=== PATIENT | female | born 1945 | race Caucasian/White ===

== ENCOUNTER → 2023-11-13 11:21 | Outpatient (REF) | payer OTHER, SELFPAY | LOC: RAD 11:21 | PROVIDERS: ATTENDING PHYSICIAN Family Medicine | DX: R05.8 Other specified cough (principal); M54.50 Low back pain, unspecified; Z87.81 Personal history of (healed) traumatic fracture | CPT/HCPCS: 71046; 72110 ==

== ENCOUNTER → 2023-12-18 09:37 | Outpatient (REF) | payer OTHER, SELFPAY | LOC: WDC 09:37 | PROVIDERS: ATTENDING PHYSICIAN Family Medicine Geriatric Medicine; FAMILY PHYSICIAN Family Medicine | DX: R92.2 Inconclusive mammogram (principal); R92.30 Dense breasts, unspecified | CPT/HCPCS: 76641 ==

== ENCOUNTER → 2024-01-05 08:55 | Outpatient (REF) | payer OTHER, SELFPAY | LOC: RAD 08:55 | PROVIDERS: ATTENDING PHYSICIAN Family Medicine | DX: R07.81 Pleurodynia (principal) | CPT/HCPCS: 71101 ==

== ENCOUNTER → 2024-01-30 09:01 | Outpatient (REF) | payer OTHER, SELFPAY | LOC: RAD 09:01 | PROVIDERS: ATTENDING PHYSICIAN Family Medicine | DX: R35.1 Nocturia (principal) | CPT/HCPCS: 76770 ==

== ENCOUNTER → 2024-02-13 13:34 | Outpatient (REF) | payer OTHER, SELFPAY | LOC: PAVMRI 13:34 | PROVIDERS: ATTENDING PHYSICIAN Internal Medicine Rheumatology; FAMILY PHYSICIAN Family Medicine | DX: S32.020S Wedge compression fracture of second lumbar vertebra, sequela (principal); S22.080S Wedge compression fracture of T11-T12 vertebra, sequela | CPT/HCPCS: 72148 ==

== ENCOUNTER → 2024-07-16 09:15 | Outpatient (REF) | payer OTHER, SELFPAY | LOC: RAD 09:15 | PROVIDERS: ATTENDING PHYSICIAN Family Medicine; REFERRING PHYSICIAN Internal Medicine Rheumatology | DX: M81.0 Age-related osteoporosis without current pathological fracture (principal) | CPT/HCPCS: 77080 ==

== ENCOUNTER → 2024-10-29 14:02 | Outpatient (REF) | payer OTHER, SELFPAY | LOC: WDC 14:02 | PROVIDERS: ATTENDING PHYSICIAN Family Medicine | DX: Z12.31 Encounter for screening mammogram for malignant neoplasm of breast (principal); Z85.3 Personal history of malignant neoplasm of breast | CPT/HCPCS: 77063; 77067 ==

== ENCOUNTER → 2024-11-25 10:36 | Outpatient (REF) | payer OTHER, SELFPAY | LOC: RAD 10:36 | PROVIDERS: ATTENDING PHYSICIAN Family Medicine Geriatric Medicine; FAMILY PHYSICIAN Family Medicine | DX: M25.511 Pain in right shoulder (principal) | CPT/HCPCS: 73030 ==

== ENCOUNTER → 2024-11-29 08:28 | Outpatient (REF) | payer OTHER, SELFPAY | LOC: RAD 08:28 | PROVIDERS: ATTENDING PHYSICIAN Family Medicine | DX: R06.02 Shortness of breath (principal); R05.3 Chronic cough | CPT/HCPCS: 71046 ==

== ENCOUNTER → 2024-12-17 09:43 | Outpatient (REF) | payer OTHER, SELFPAY | LOC: WDC 09:43 | PROVIDERS: ATTENDING PHYSICIAN Family Medicine | DX: R92.333 Mammographic heterogeneous density, bilateral breasts (principal) | CPT/HCPCS: 76641 ==

== ENCOUNTER 2025-01-25 07:58 | Emergency (ER) | payer OTHER, SELFPAY ==
[2025-01-25 08:06] VITALS: BP 143/83
--- NOTE | 2025-01-25 09:50 | ED.GENMED ---
History of Present Illness
General
Chief Complaint: Cough
Source: patient
Exam Limitations: none
Time Seen by Provider: 01/25/25 08:52
History of Present Illness
History of Present Illness:
79-year-old female who presents with 2 to 3 weeks of runny nose, cough and congestion. Had an outpatient x-ray that was reportedly normal. Also saw ENT. Was started on cefdinir and finished the course. She states she has not felt any better.
She has felt weak and still maintains a cough with yellow sputum. No hemoptysis. 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 Denies fevers.
Past History
Past History
ED Past Medical History: Cancer (Breast), HTN, Hypercholesterolemia and Other (L1 compression fracture)
ED Past Surgical History: Cholecystectomy and Other
Patient has exhibited threatening behavior?: No
PSI?: No
Social History
Tobacco: Non-smoker
Alcohol: None
Personal:
Living: with family
Employment: Retired
Family History
Family History: Other (Noncontributory)
Phy Exam
Physical Exam
Physical Exam:
CONSTITUTIONAL Patient alert and oriented to person, place and time. Well-appearing. Vital signs reviewed.
HEAD atraumatic, normocephalic.
EYES eyelids normal to inspection, Extraocular muscles intact, Conjunctiva normal, Sclera normal.
NECK normal range of motion, Trachea midline, no jugular venous distention.
RESPIRATORY CHEST No respiratory distress noted, Chest expansion equal, Bilateral breath sounds clear.
CARDIOVASCULAR regular rate and rhythm, Heart sounds normal.
ABDOMEN abdomen nontender, Bowel sounds normal. No distention.
BACK normal inspection, no obvious deformities
UPPER EXTREMITY range of motion normal, Motor strength normal, no cyanosis, no edema.
LOWER EXTREMITY range of motion normal, Motor strength normal, no cyanosis, no edema.
NEURO Speech normal, No focal motor deficits, Isra coma scale 15, Memory normal, Cranial Nerves intact to screening exam.
SKIN skin warm, dry, and normal in color.
Sepsis
Sepsis Screening
Sepsis Assessment: Sepsis Ruled Out
Sepsis Screen
Sepsis Screen: Sepsis Ruled Out
Date: 01/25/25
Time: 14:47
Course
Orders/Labs/Results
Orders:
Orders
01/25/25 09:40
CR Chest - 2 Views Urgent
Comment:
Reason For Exam: cough
01/25/25 09:53
Ipratropium/Albuterol Sulfate [Duoneb] 3 ml INH R NOW STA
01/25/25 10:19
Complete Blood Count/With Diff Urgent
Comprehensive Metabolic Panel Urgent
Abnormal Lab Results
01/25/25
10:19
RBC 3.85 L 10^6/uL
(4.20-5.40)
Hct 34.7 L %
(37.0-47.0)
MCH 31.9 H pg
(27.0-31.0)
Absolute Lymphs (auto) 0.5 L 10^3/uL
(1.2-3.4)
Absolute Monos (auto) 0.8 H 10^3/uL
(0.1-0.6)
Neutrophils % 81.7 H %
(42.2-75.2)
Lymphocytes % 6.5 L %
(20.5-51.1)
Monocytes % 10.3 H %
(1.7-9.3)
Sodium 130 L mmol/L
(135-145)
Chloride 95 L mmol/L
(98-107)
BUN 6 L mg/dl
(7-17)
Creatinine 0.5 L mg/dL
(0.6-1.0)
Glucose 109 H mg/dl
(70-99)
Total Bilirubin 1.5 H mg/dl
(0.2-1.3)
Total Protein 6.1 L g/dl
(6.3-8.2)
01/25/25 10:19
01/25/25 10:19
Vital Signs
Initial and Last Documented VS:
Initial Vital Signs
Temp Pulse Resp BP Pulse Ox
99.1 F 92 18 143/83 96
01/25/25 08:06 01/25/25 08:06 01/25/25 08:06 01/25/25 08:06 01/25/25 08:06
Last Documented Vital Signs
Temp Pulse Resp BP Pulse Ox
99.1 F 93 22 143/83 97
01/25/25 08:06 01/25/25 11:00 01/25/25 11:00 01/25/25 08:06 01/25/25 10:45
MDM/Problems Addressed
Differential Diagnosis Includes:
Bronchitis, pneumonia, pulmonary abscess
MDM/Problems Addressed:
Bronchitis, upper respiratory infection
*Radiology
Radiology exam reviewed: preliminary read by ED provider (No acute process)
*Pulse Oximetry
Patient hypoxic: no
*Laborer Operator Interpretation
Rate: normal
Interpretation: normal
Rhythm: sinus
*Critical Care Note
Total Time (30-74mins, 75-104mins- exclusive of procedures): Not Applicable
Data Reviewed
Prescriptions/Medications Considered But Not Given:
Considered antibiotics but no evidence of pneumonia, no fever and labs unremarkable. Suspect URI
Patient Management
Escalation/DeEscalation of care consider admission/obs:
Patient appears well. Lungs clear. No pneumonia by chest x-ray. Recently finished a course of antibiotics. Will trial course of steroids for the bronchitis and recommend outpatient follow-up. Patient states she has a CT of her sinuses and chest
scheduled as an outpatient which I think is reasonable and do not suspect any reason to have it done in the emergency department.
ED Attending Note
-
Portions of this chart may have been created with voice recognition software.� Occasional wrong word or��sound alike� substitutions may have occurred due to the inherent limitations of voice recognition software.
Discharge Plan
Departure
Patient Disposition: Home (Routine Discharge)
Date of Disposition: 01/25/25
Time of Disposition: 10:59
Patient with high blood pressure during this ER visit?: Yes
Discharge Problem:
Acute bronchitis
Instructions: Acute Bronchitis, Adult (DC), BLOOD PRESSURE
Prescriptions:
New
prednisone 10 mg Tablet
See Rx Instructions .ROUTE .COMPLEX Qty: 30 0RF
Rx Instructions:
Take By Mouth:
40 mg daily x3 days, 30 mg daily x3 days,
20 mg daily x3 days, 10 mg daily x3 days.
No Action
losartan 50 MG tablet
50 mg PO DAILY
aspirin 81 MG tablet,chewable
81 mg PO DAILY
esomeprazole magnesium [Nexium] 40 MG capsule,delayed release(DR/EC)
40 mg PO DAILY
atorvastatin 40 MG tablet
40 mg PO QPM
cyanocobalamin (vitamin B-12) [Vitamin B-12] 500 MCG tablet
500 mcg PO DAILY
hydromorphone 2 MG tablet
2 mg PO Q4HPRN PRN (Reason: moderate to severe pain) Qty: 30 0RF
ondansetron 4 MG tablet,disintegrating
4 mg PO Q8HPRN PRN (Reason: nausea/vomiting) Qty: 15 0RF
hydrocodone-acetaminophen 5-325 mg tablet
1 tab PO Q8H PRN (Reason: pain) Qty: 12 0RF
Referrals:
Barbi Dave MD [Family Provider] -
Activity Restrictions/Additional Instructions:
Return immediately for shortness of breath, coughing up blood, vomiting, worsening symptoms or any other concerns. Please see your doctor in the next 3 to 5 days for follow-up and reevaluation.
Interventions
Interventions:
*Risk Screen - Suicide Last Done: 01/25/25 08:07
*General Assessment Last Done: 01/25/25 08:07
*Neglect/Abuse Screening Last Done: 01/25/25 08:07
*ED- Fall Risk Assessment Last Done: 01/25/25 10:02
*ED COVID-19 Vaccine History Last Done: 01/25/25 10:02
*Nursing Disposition Last Done: 01/25/25 11:17
ED- Pulmonary Assessment Last Done: 01/25/25 10:02
Discharge Date and Time
Discharge Date/Time: 01/25/25 11:20
Print Language: PORTUGUESE
[2025-01-25] MEDS: DUONEB 3 ML INH (10:20)
[2025-01-25 10:30] LABS: % Basophils 0.6 % (0-2); % Eosinophils 0.6 % (0-6); % Immature Granulocytes 0.3 % (0-0.5); % Lymphocytes 6.5 % (20.5-51.1); % Monocytes 10.3 % (1.7-9.3); % Neutrophils 81.7 % (42.2-75.2); Absolute Basophils 0.1 10^3/uL (0-0.2); Absolute Eosinophils 0.1 10^3/uL (0-0.7); Absolute Lymphocytes 0.5 10^3/uL (1.2-3.4); Absolute Monocytes 0.8 10^3/uL (0.1-0.6); Absolute Neutrophils 6.5 10^3/uL (1.4-6.5); Hematocrit 34.7 % (37.0-47.0); Hemoglobin 12.3 g/dL (12.0-16.0); Mean Corp Hgb Conc. 35.4 g/dL (33.0-37.0); Mean Corpuscular Hgb 31.9 pg (27.0-31.0); Mean Corpuscular Volume 90.1 fL (81.0-99.0); Nucleated Red Blood Cells % 0 %; Platelet Count 212 10^3/uL (130-400); Red Blood Cell Count 3.85 10^6/uL (4.20-5.40); Red Cell Dist. Width 12.7 % (11.5-14.5)
[2025-01-25 10:45] LABS: ALT (SGPT) 18 U/L (0-35); AST (SGOT) 19 U/L (14-36); Alkaline Phosphatase 47 U/L (38-126); Blood Urea Nitrogen 6 mg/dl (7-17); Calcium 9.1 mg/dl (8.4-10.2); Carbon Dioxide 25 mmol/L (22-30); Chloride 95 mmol/L (98-107); Glucose 109 mg/dl (70-99); Sodium 130 mmol/L (135-145); Total Bilirubin 1.5 mg/dl (0.2-1.3); Total Protein 6.1 g/dl (6.3-8.2); eGFR > 60.00
== END 2025-01-25 11:20 | disposition home or self-care (01) ==
LOC: EMR 07:58
PROVIDERS: EMERGENCY PHYSICIAN Emergency Medicine; FAMILY PHYSICIAN Family Medicine
DX: J20.9 Acute bronchitis, unspecified (principal); E78.00 Pure hypercholesterolemia, unspecified; I10 Essential (primary) hypertension; Z90.49 Acquired absence of other specified parts of digestive tract; J06.9 Acute upper respiratory infection, unspecified
CPT/HCPCS: 94640; 99284; 71046; 80053; 85025

== ENCOUNTER → 2025-02-06 11:26 | Outpatient (REF) | payer OTHER, SELFPAY | LOC: HWRAD 11:26 | PROVIDERS: ATTENDING PHYSICIAN Family Medicine | DX: K40.90 Unilateral inguinal hernia, without obstruction or gangrene, not specified as recurrent (principal); N20.0 Calculus of kidney | CPT/HCPCS: 74176 ==

== ENCOUNTER → 2025-02-08 09:09 | Outpatient (REF) | payer OTHER, SELFPAY | LOC: RAD 09:09 | PROVIDERS: ATTENDING PHYSICIAN Physician Assistant; FAMILY PHYSICIAN Family Medicine | DX: R05.3 Chronic cough (principal); J31.2 Chronic pharyngitis | CPT/HCPCS: 70486; 71250 ==

== ENCOUNTER 2025-04-27 14:07 | Observation (INO) | payer OTHER, SELFPAY ==
[2025-04-27] VITALS (12 sets, daily range): BP systolic 150–201; BP diastolic 63–83; BMI 23.3; BMI 23.8
[2025-04-27 08:46] LABS: Hematocrit 37.8 % (37.0-47.0); Hemoglobin 13.4 g/dL (12.0-16.0); Mean Corp Hgb Conc. 35.4 g/dL (33.0-37.0); Mean Corpuscular Volume 89.8 fL (81.0-99.0); Nucleated Red Blood Cells % 0 %; Platelet Count 269 10^3/uL (130-400); Red Cell Dist. Width 12.7 % (11.5-14.5)
--- NOTE | 2025-04-27 08:56 | EDRN ---
Dr. Schultz in room w/ pt at this time.
--- NOTE | 2025-04-27 08:59 | ED.GENMED ---
History of Present Illness
General
Chief Complaint: Abdominal Pain
Source: patient
Exam Limitations: none
Time Seen by Provider: 04/27/25 08:49
History of Present Illness
History of Present Illness:
79-year-old female ongoing right lower quadrant pain. She is convinced this is a hernia. She states this been going on for 2 weeks constant but waxes and wanes and at times worse. Occasionally nausea with it. No vomiting no change in bowel
movements no fever chills no flank or back pain. Patient states she did have a CAT scan for this recently. However on reviewing the records the CAT scan was done 2-1/2 months ago. She then states that she may have had some of this pain prior to 2
weeks ago. She does not see a lump when she stands but she states she feels like there is a lump there
Past History
Past History
ED Past Medical History: Cancer (Breast), HTN, Hypercholesterolemia and Other (L1 compression fracture)
ED Past Surgical History: Cholecystectomy and Other
Patient has exhibited threatening behavior?: No
PSI?: No
Social History
Tobacco: Non-smoker
Alcohol: None
Personal:
Living: with family
Employment: Retired
Family History
Family History: Other (Noncontributory)
Review of Systems
Review of Systems
Constitutional: Denies fever or chills
Respiratory: Reports no symptoms
Cardiac: Reports no symptoms
Phy Exam
Physical Exam
Physical Exam:
GENERAL: Alert and oriented in no apparent distress
EYE: Orbits normal.
NECK: Supple
CARDIAC: Regular rate and rhythm without any obvious murmurs.
LUNGS: Clear breath sounds,normal
ABDOMEN: Soft, no distention. Bowel sounds present. Reproducible right lower quadrant and right pelvic tenderness. No obvious hernia palpated. No adenopathy.
NEUROLOGICAL: Alert and oriented , grossly non-focal
SKIN: Warm and dry, no rash or lesion, no discoloration, skin intact.
MUSCULOSKELETAL: No edema,no deformity.Good color
PSYCH: Normal and appropriate interaction.
Course
Orders/Labs/Results
Orders:
Orders
04/27/25 Breakfast
Sodium, 2 Gram
Fluid Restriction: 1500 mL/day (50 oz)
04/27/25 08:30
IV Insert/Care/Rem.- Treatment PRN
04/27/25 08:37
Complete Blood Count/With Diff Urgent
04/27/25 08:58
CT Abd/pel W Iv And Oral Contr Urgent
Comment:
Reason For Exam: Ongoing and progressive right lower quadrant pain
IV Insert/Care/Rem.- Treatment PRN
0.9% Sodium Chloride 500 ml [Nss] 500 ml IV BOLUS
Acetaminophen [Tylenol] 650 mg PO NOW STA
Iohexol [Omnipaque] See Protocol PO NOW STA
04/27/25 09:18
Comprehensive Metabolic Panel Urgent
Lipase Urgent
Serum Osmolality Urgent
Comment: ADD ON
04/27/25 13:08
Add On- LAB Urgent
Tests Added?: serum osm
04/27/25 13:10
Bladder Scan As Directed
Follow Bladder Retention/Intermittent Cath Algorithm?: Yes
PRN if no void in __ hours: 6
Frequency: Per Retention Algorithm
If Bladder Scan Result >: 400
then:: Straight cath
Comment: Please document post-void residual
Straight Cath As Directed
Frequency: Per Retention Algorithm
Additional Instructions: straight cath as needed per acute urinary retention algorithm for 24 hrs
Additional Instructions: for bladder scan greater than 400 mL
04/27/25 13:11
Admit/Transfer Patient As Directed
Co-Sign Provider:
Level of Care: Observation services
Assign to:: Medical/Surgical
Physician / Group: [place]
Diagnosis: Abdominal Pain
Code Status As Directed
Resuscitation Status: Full Code
PRN Pain Medication Management As Directed
May give lesser potent ordered pain med per pt: Yes
preference::
Protocol:: Medication orders for pain may be administered in a
manner that supports deferring to patient preference
when the pt is:
- Requesting an ordered lesser potent pain medication.
Least to most potent pain medications are defined
as: acetaminophen < NSAID < tramadol < opioids
(morphine, oxycodone, hydromorphone).
- Requesting a lesser dose of the same medication IF
ORDERED.
- Requesting a less intrusive route of administration
if both routes are prescribed by the provider (PO <
IV).
04/27/25 14:08
Sodium Routine
Urinalysis Reflex To Culture Urgent
Date Specimen was Collected: 04/27/25
Time Specimen was Collected: 13:40
Urine Osmolality Random [Osmolality, Random Urine] Urgent
Date Specimen was Collected: 04/27/25
Time Specimen was Collected: 13:41
Urine Sodium Urgent
Date Specimen was Collected: 04/27/25
Time Specimen was Collected: 13:41
04/27/25 15:41
HydrALAZINE [Apresoline] 5 mg IV Q6HPRN PRN
04/27/25 15:41
Activity As Directed
Activity Level: Out of Bed-Early Mobility
With Assistance
I&O [Intake/ Output] As Directed
Frequency: q12h
Vital Signs As Directed
Frequency: Per unit guidelines
Weight As Directed
Frequency: Daily
DX Deep Vein Thrombosis Video Routine
04/27/25 16:00
Acetaminophen [Tylenol] 650 mg PO Q4HPRN PRN
04/27/25 18:00
Enoxaparin Sodium [Lovenox] 40 mg SC QPM
04/28/25 06:00
Basic Metabolic Panel IN AM
Complete Blood Count/No Diff IN AM
TSH Reflex To Free T4 IN AM
04/28/25 08:00
Polyethylene Glycol Powder [Miralax] 17 grams PO DAILY
Abnormal Lab Results
04/27/25 04/27/25
08:37 09:18
MCH 31.8 H pg
(27.0-31.0)
Absolute Lymphs (auto) 0.6 L 10^3/uL
(1.2-3.4)
Neutrophils % 83.1 H %
(42.2-75.2)
Lymphocytes % 8.5 L %
(20.5-51.1)
Sodium 126 L mmol/L
(135-145)
Chloride 96 L mmol/L
(98-107)
BUN 5 L mg/dl
(7-17)
Creatinine 0.4 L mg/dL
(0.6-1.0)
Glucose 114 H mg/dl
(70-99)
Serum Osmolality 264 L mOsm/kg
(275-300)
04/27/25 08:37
04/27/25 09:18
Vital Signs
Initial and Last Documented VS:
Initial Vital Signs
Temp Pulse Resp BP Pulse Ox
97.6 F 79 16 165/79 99
04/27/25 07:56 04/27/25 07:56 04/27/25 07:56 04/27/25 07:56 04/27/25 07:56
Last Documented Vital Signs
Temp Pulse Resp BP Pulse Ox
97.8 F 83 18 169/80 98
04/27/25 16:05 04/27/25 16:05 04/27/25 16:05 04/27/25 16:05 04/27/25 16:05
MDM/Problems Addressed
Differential Diagnosis Includes:
Ongoing right lower quadrant/pelvic pain. Differential would include hernia appendicitis right-sided diverticulitis nonspecific pain. Workup in progress
*Radiology
Radiology exam reviewed: radiology read reviewed (No acute findings. No obvious hernia or explanation for her pain)
*Pulse Oximetry
SaO2: 99
Oxygen Mode of Delivery: Room air
Patient hypoxic: no
*Critical Care Note
Total Time (30-74mins, 75-104mins- exclusive of procedures): Not Applicable
Update Note
Update Note:
Patient with moderate hyponatremia. No obvious explanation. No significant free water intake. No diuretic. Discussed options with patient of fluid restrict and repeat outpatient labs in 2 days versus admission. She would prefer to stay and be
admitted.
ED Attending Note
-
Portions of this chart may have been created with voice recognition software.� Occasional wrong word or��sound alike� substitutions may have occurred due to the inherent limitations of voice recognition software.
Discharge Plan
Departure
Patient Disposition: Admit
Date of Disposition: 04/27/25
Time of Disposition: 12:44
Presentation/result/management discussed w/ accepting MD/DO: Hospitalist
Discharge Problem:
Intractable right lower quadrant pain, Hyponatremia
Interventions
Interventions:
*Risk Screen - Suicide Last Done: 04/27/25 08:27
*General Assessment Last Done: 04/27/25 08:27
*Neglect/Abuse Screening Last Done: 04/27/25 08:27
*ED- Fall Risk Assessment Last Done: 04/27/25 08:27
*ED COVID-19 Vaccine History Last Done: 04/27/25 08:27
*Nursing Disposition Last Done: 04/27/25 15:27
ES-Crfkfm-Hcagiqivsl Assessment Last Done: 04/27/25 08:28
Discharge Date and Time
Discharge Date/Time: 04/27/25 15:30
[2025-04-27] MEDS: TYLENOL 650 MG PO (09:10)
[2025-04-27] MEDS: OMNIPAQUE 50 ML PO (09:10)
[2025-04-27] MEDS: NSS 500 IV (09:16)
--- NOTE | 2025-04-27 09:21 | EDRN ---
SST blood tube for CMP and lipase redrawn and sent at this time.
[2025-04-27 09:35] LABS: ALT (SGPT) 21 U/L (0-35); AST (SGOT) 24 U/L (14-36); Albumin 4.5 g/dl (3.5-5.0); Alkaline Phosphatase 44 U/L (38-126); Blood Urea Nitrogen 5 mg/dl (7-17); Calcium 9.1 mg/dl (8.4-10.2); Carbon Dioxide 26 mmol/L (22-30); Chloride 96 mmol/L (98-107); Estimated Creatinine Clearance 63 ml/min; Glucose 114 mg/dl (70-99); Lipase 53 U/L (23-300); Potassium 4.5 mmol/L (3.5-5.1); Sodium 126 mmol/L (135-145); Total Protein 6.7 g/dl (6.3-8.2); eGFR > 60.00
--- NOTE | 2025-04-27 12:24 | EDRN ---
Up to BR on return from CT at 11:27 and attempted urine spec, did not get enough urine.
--- NOTE | 2025-04-27 12:45 | HPS.HSE ---
Addendum entered and electronically signed by Belgica Camara PA-C 04/27/25 15:08:
Medication reconciliation revealed patient was recently started on Lexapro earlier this week
-Given worsening hyponatremia will stop Lexapro as a possible contributing factor
Original Note:
Family Physician
-
Family Physician: Barbi Dave
Chief Complaint
-
Abdominal Pain
History of Present Illness
Patient is a 79 y/o female past medical history of CAD, HTN, Compression Fracture, GERD and Breast Cancer who presents with abdominal pain. Patient reports lower abdominal pain has been waking her up around 2am almost very night for the past few
weeks. Today the pain was more severe prompting her to come to the emergency department for evaluation. Patient states sometimes she gets a burning sensation down the anterior right leg. Patient reports associated constipation. She denies any
nausea or vomiting. Patient reports urinary frequency particularly at night and she states she was recently started on a medication for overactive bladder. Patient reports she has been under an increased amount of stress recently while her
is in a jail. She notes she eat breakfast, but never eats lunch and only sometimes eats dinner stating she usually drinks an Ensure.
Medical History
Past Medical History
Past Medical History: Reports Other
Additional Past Medical History:
Coronary Artery Disease s/p Stent
Essential Hypertension
Hyperlipidemia
Lumbar Compression Fracture
Depression
GERD
Breast Cancer
Past Surgical History: Reports Other
Additional Past Surgical History:
Cholecystectomy
Right Breast Lumpectomy
Tiana Fundoplication
Social History
Tobacco: Non-smoker
Alcohol: Daily (One glass of wine nightly)
Family History
Family History: Not pertinent
Allergies / Home Medications
Allergies reflects when Allergies were last updated in [employer].
Home Medications with original date entered in [facility]
Allergy/Medication List:
Allergies
Allergy/AdvReac Type Severity Reaction Status Date / Time
pecan nut Allergy RAPID Verified 01/25/25 08:06
HEART RATE
procaine Allergy Unknown Verified 01/25/25 08:06
epinephrine AdvReac Rapid Verified 01/25/25 08:06
Heart
rate,
sweats
Home Medications
atorvastatin 40 mg tablet 40 mg PO QPM 01/06/16
cyanocobalamin (vitamin B-12) 500 mcg tablet (Vitamin B-12) 500 mcg PO DAILY 01/06/16
aspirin 81 mg tablet 81 mg PO DAILY 04/27/25
calcium ER 600 mg (as carb,cit)-D3 12.5 mcg (500 unit) tablet, ext.rel (Citracal-D3 Slow Release) 1 tab PO DAILY 04/27/25
cholecalciferol (vitamin D3) 25 mcg (1,000 unit) tablet 25 mcg PO DAILY 04/27/25
escitalopram oxalate 5 mg tablet 5 mg PO DAILY 04/27/25
famotidine 20 mg tablet 20 mg PO QPM 04/27/25
omeprazole 20 mg capsule,delayed release 20 mg PO QPM 04/27/25
solifenacin 10 mg tablet 10 mg PO QPM 04/27/25
vit C 250 mg-vit E 90 mg-zinc 40 mg-copper 1 ng-trcnwi-gbuvsu capsule (PreserVision AREDS-2) 1 tab PO BID 04/27/25
Review of Systems
-
A 12 point ROS was completed and negative except as noted: Yes
Constitutional: Denies Fever
Respiratory: Denies Cough or Trouble Breathing
Cardiac: Denies Chest Pain or Palpitations
Abdomen/GI: Reports See HPI
: Reports See HPI
Physical Exam
Vital Signs
Vital Signs
Temp Pulse Resp BP Pulse Ox
97.6 F 79 16 169/74 99
04/27/25 07:56 04/27/25 12:00 04/27/25 12:00 04/27/25 12:00 04/27/25 12:00
Physical Exam
General: Comfortable and Conversant
HEENT: Anicteric and Moist mucous membranes
Respiratory: Clear and Non Labored Respirations
Cardiac: S1/S2 and Regular Rhythm
GI: Soft and Tender (Tenderness to palpitation in lower quadrants)
Rectal: Deferred by Provider
Musculoskeletal: No Clubbing, No Cyanosis and No Edema
Skin: Warm and Dry
Neuro: Awake, Alert, Oriented and Nonfocal/grossly intact
Psych: Calm
Laboratory Results
-
04/27/25 08:37
04/27/25 09:18
Laboratory Results
Total Bilirubin 1.0 mg/dl (0.2-1.3) 04/27/25 09:18
AST 24 U/L (14-36) 04/27/25 09:18
ALT 21 U/L (0-35) 04/27/25 09:18
Alkaline Phosphatase 44 U/L (38-126) 04/27/25 09:18
Lipase 53 U/L (23-300) 04/27/25 09:18
Data Reviewed
-
CT Scan: Report Reviewed by me
Lab Data: Labs Reviewed by me
Impression/Plan
-
Abdominal Pain, possibly related to constipation vs urinary retention
-Start Miralax
-Check bladder scan with post void residual - Hold solifenacin for now
Acute on Chronic Hyponatremia, suspect related to low solute intake due to minimal food consumption
-Check urine sodium and urine osmo
-Patient received IVFs in ED - Check sodium level later this evening
Coronary Artery Disease s/p Stent
-Continue aspirin
Essential Hypertension
-BP running on the high side likely due to pain
-Add hydralazine prn and continue to monitor
Hyperlipidemia
-Continue atorvastatin
Depression
-Continue escitalopram
GERD
-Continue Pepcid and Protonix
DVT proph: Lovenox
Code Status: Full Code
--- NOTE | 2025-04-27 13:05 | EDRN ---
Chantal BOSS in room w/pt at this time.
--- NOTE | 2025-04-27 13:29 | EDRN ---
Pt reattempting urine spec in BR at this time.
--- NOTE | 2025-04-27 13:53 | W.PN.UPDATE ---
Update Note
Progress Note Update
This is an addendum to H&P written by Belgica Walls on 04/27/2025. �Patient seen and examined independently with PA.
79-year-old female past medical history of hiatal hernia status post Tiana fundoplication, breast cancer, hypertension, hypercholesteremia, L1 compression fracture, presenting for right lower quadrant abdominal pain, occasional nausea. �Has to
strain to have bowel movements.
Vital signs show blood pressure 160s. �Patient with tenderness of right flank, right lower quadrant as well as periumbilical region across the belly. �No physical findings of hernia on examination
Labs show sodium of [address] abdomen pelvis shows moderate distention of the rectum with stool. �Findings suggest stercoral colitis. Small central hiatal hernia.
Patient with right lower quadrant abdominal pain, unclear etiology. �Pain does radiate from the right lower quadrant down to the upper part of the right leg. �Constipation can explain some of the pain that goes across her abdomen and straining.
�Unclear if she is having sciatic pain, although no overt back pain. �No weakness of right leg. Less likely fibroids causing pain. �Check bladder scan and postvoid residual due to urinary frequency. �Check urinalysis.
Start MiraLAX. �Tylenol for pain if needed.
Also with worsening of chronic hyponatremia likely SIADH from pain and poor solute intake. �Given IV fluids in ER. �Check Urine sodium, osmolality. �Fluid restriction. �Check TSH.
--- NOTE | 2025-04-27 14:24 | EDRN ---
Lab called about serum sodium order that is ordered upon transfer in admission orders. This RN said order is ordered upon pt arriving to admission floor or to be drawn when her orders are processed.
[2025-04-27 14:25] LABS: Urine Character Clear (Clear)
--- NOTE | 2025-04-27 14:35 | CM ---
CM reviewed chart and met with pt bedside in ED. Lives alone in Multistory home, 2 floors plus basement. [address] from front, [address] which is her normal entrance.
Pt recently moved her into LTC at [facility].
Pt independent in ADLs, personal care and ambulation at baseline. Does have toilet rails and shower chair, is looking in to a stair glide.
PCP: Barbi Dave
Pharmacy: [facility]
CM will continue to follow for any discharge planning needs.
--- NOTE | 2025-04-27 15:26 | EDRN ---
Sodium level drawn and sent at this time.
[2025-04-27 16:08] LABS: Sodium 127 mmol/L (135-145)
[2025-04-27] MEDS: PROTONIX 40 MG PO (18:39)
[2025-04-27] MEDS: LIPITOR 40 MG PO (18:39)
[2025-04-28 06:00] VITALS: BMI 23.3
[2025-04-28 06:44] LABS: Hematocrit 36.2 % (37.0-47.0); Hemoglobin 13.1 g/dL (12.0-16.0); Mean Corp Hgb Conc. 36.2 g/dL (33.0-37.0); Mean Corpuscular Volume 89.4 fL (81.0-99.0); Platelet Count 271 10^3/uL (130-400); Red Cell Dist. Width 12.4 % (11.5-14.5)
[2025-04-28 07:03] LABS: Blood Urea Nitrogen 4 mg/dl (7-17); Calcium 8.8 mg/dl (8.4-10.2); Carbon Dioxide 24 mmol/L (22-30); Chloride 99 mmol/L (98-107); Estimated Creatinine Clearance 61 ml/min; Glucose 108 mg/dl (70-99); Potassium 4.0 mmol/L (3.5-5.1); Sodium 127 mmol/L (135-145); eGFR > 60.00
[2025-04-28 07:49] VITALS: BP 161/73
[2025-04-28] MEDS: TYLENOL 650 MG PO (08:19)
[2025-04-28] MEDS: ASPIR LOW (ENTERIC COATED) 81 MG PO (08:19)
--- NOTE | 2025-04-28 13:07 | CM ---
Patient seen at bedside with physicians. Patient continues with pain. Patient at [facility] at this time. Patient sisters- support system both having their own medical issues. CM will continue to follow for discharge planning needs.
Plan; watch for VN vs SNF.
[2025-04-28 14:54] VITALS: BP 167/77
[2025-04-28 15:15] VITALS: BMI 23.3
[2025-04-28] MEDS: TORADOL 15 MG IV (15:24)
[2025-04-28] MEDS: PROTONIX 40 MG PO (17:04)
[2025-04-28] MEDS: LIPITOR 40 MG PO (17:04)
--- NOTE | 2025-04-28 17:48 | CON.GS ---
Medical History
-
Chief Complaint: RIGHT lower abdominal/groin pain
History of Present Illness:
Patient is a 79 yo F with a PMH of depression/anxiety, GERD, HTN, HLD, CAD s/p PCI with stent, lumbar compression fracture with chronic back pain, s/p cholecystectomy, s/p RIGHT breast lumpectomy, and s/p laparoscopic hiatal hernia repair and Tiana
fundoplication. Ms. Stafford presents with several week history of of RLQ and right groin pain. Symptoms are worse with lying down at the end of the evening. She also reports some discomfort with walking. She deficits she does have chronic issues
with constipation, but denies any nausea, vomiting, or episodes of a firm nonreducible bulge with overlying skin changes). She does report some burning sensation in the anterior medial thigh. She denies any symptoms on the LEFT.
Past Medical History
Past Medical History: CAD, GERD, HTN, Hypercholesterolemia, Psychiatric (Depression/anxiety) and Other (Chronic back pain)
Past Surgical History: Cholecystectomy and Other (RIGHT breast lumpectomy, Lap hiatal hernia repair with Tiana fundoplication)
Social History
Tobacco: Non-Smoker
Alcohol: Daily
Drug: None
Family History
Family History: Reviewed & Not Pertinent
Allergies / Home Medications
Allergy/AdvReac Type Severity Reaction Status Date / Time
pecan nut Allergy RAPID Verified 01/25/25 08:06
HEART RATE
procaine Allergy Unknown Verified 01/25/25 08:06
epinephrine AdvReac Rapid Verified 01/25/25 08:06
Heart
rate,
sweats
�Medication �Instructions �Recorded �Confirmed �Type
atorvastatin 40 mg tablet 40 mg PO QPM 01/06/16 04/27/25 History
cyanocobalamin (vitamin B-12) 500 500 mcg PO DAILY 01/06/16 04/27/25 History
mcg tablet (Vitamin B-12)
aspirin 81 mg tablet 81 mg PO DAILY 04/27/25 04/27/25 History
calcium ER 600 mg (as carb,cit)-D3 1 tab PO DAILY 04/27/25 04/27/25 History
12.5 mcg (500 unit) tablet,
ext.rel (Citracal-D3 Slow Release)
cholecalciferol (vitamin D3) 25 25 mcg PO DAILY 04/27/25 04/27/25 History
mcg (1,000 unit) tablet
escitalopram oxalate 5 mg tablet 5 mg PO DAILY 04/27/25 04/27/25 History
famotidine 20 mg tablet 20 mg PO QPM 04/27/25 04/27/25 History
omeprazole 20 mg capsule,delayed 20 mg PO QPM 04/27/25 04/27/25 History
release
solifenacin 10 mg tablet 10 mg PO QPM 04/27/25 04/27/25 History
vit C 250 mg-vit E 90 mg-zinc 40 1 tab PO BID 04/27/25 04/27/25 History
mg-copper 1 [id number]
capsule (PreserVision AREDS-2)
Review of Systems
-
A 10 point review of systems was completed, and was negative except as per HPI.
Physical Exam
Vital Signs
Temp Pulse Resp BP Pulse Ox
98.2 F 73 16 167/77 97
04/28/25 14:54 04/28/25 14:54 04/28/25 14:54 04/28/25 14:54 04/28/25 14:54
04/27/25 04/28/25 04/29/25
06:59 06:59 06:59
Actual Weight 57.748 kg
Body Mass Index (BMI) 23.3
Lab Results
04/28/25 06:29
04/28/25 06:29
WBC 5.4 10^3/uL (4.8-10.8) 04/28/25 06:29
Hgb 13.1 g/dL (12.0-16.0) 04/28/25 06:29
Hct 36.2 % (37.0-47.0) L 04/28/25 06:29
Plt Count 271 10^3/uL (130-400) 04/28/25 06:29
Abs Immat Gran (auto) 0.0 10^3/uL (0-0.05) 04/27/25 08:37
Neutrophils % 83.1 % (42.2-75.2) H 04/27/25 08:37
Physical Exam
General: Well Developed, Well Nourished and No Apparent Distress
HEENT: Normocephalic and Anicteric
Respiratory: Non Labored Respirations
Cardiac: Regular Rhythm
GI: Soft, Non Tender, Non Distended, Incisions (Well healed) and Other (RIGHT inguinal hernia, small, soft, reducible, tender to palpation, no overlying skin chances, no palpable LEFT inguinal hernia)
Genito-urinary: Inguinal Hernia (RIGHT (see above))
Musculoskeletal: No Edema
Skin: Warm and Dry
Neuro: Nonfocal/Grossly Intact
Data Reviewed
-
CT Scan: Image Personally Visualized and interpreted and Report Reviewed by me
Labs: Labs Reviewed by me
Old Records: Reviewed
Assessment / Plan
-
Patient is a 79 yo F p/w symptomatic reducible RIGHT inguinal hernia
The natural history and pathophysiology of inguinal hernias was discussed. Anatomy was reviewed. Options for management including watchful waiting versus surgical repair were considered and discussed. The pros and cons of both approaches was
discussed. Specifically, we discussed persistent symptoms, increased size with time, and the low likelihood of strangulation or obstruction versus surgical risks. Ms. Jarvis is quite bothered by her hernia and would like to proceed with surgical
repair.
Options for surgical repair including both open and MIS were briefly considered and discussed. The pros and cons of both approaches was discussed. Given her general health would recommend a MIS approach.
Recommend a robotic RIGHT inguinal hernia repair with mesh. The procedure itself, as well as the risks, benefits, and alternatives was discussed. Specifically, we discussed the risk of bleeding, infection, injury to surrounding structures (bowel,
bladder, nerves), and recurrence. Typical post procedure recovery including SDS procedure and the need for 4 weeks no heavy lifting or strenuous activities was discussed. All questions answered.
-- Instructed patient to call the office to coordinate outpatient repair, of note, she also has an appointment with Dr. Win on 05/07 that was previously scheduled
-- Avoid heavy lifting or strenuous activities until repair, discussed use of supportive devices and underwear for symptom relief
-- OK for DC from surgical perspective
-- Call with any questions or concerns
--- NOTE | 2025-04-28 21:35 | W.PN.HOSP.TC ---
Addendum entered and electronically signed by Judy Romero MD 04/29/25 07:12:
Late entry: pt was seen 04/28/25
I saw and evaluated the patient independently. I reviewed the resident�s note and agree with findings and plan as documented by Dr. Boyer.
GENERAL: well developed, well nourished, female in some distress
HEENT: NC/AT
HEART: regular rate and rhythm, +S1, +S2
LUNGS : clear to auscultation bilaterally
ABDOM: soft, tender RLQ with some guarding, nondistended, + bowel sounds--appears to be a hernia--reducible
EXT: no cyanosis, clubbing, or edema
NEUROLOGIC: grossly intact
Acute right lower quadrant abdominal pain--suspected hernia--no appendicitis on CT scan--apprec surgery--agreed with exam--for surgical repair in future--pain control
hyponatremia--likely due to SIADH--likely due to pain with superimposed SSRI treatment--fluid restriction--holding SSRI--consider renal if worsens
Essential hypertension--cont IV hydralazine--consider adding or increasing meds
HLD--cont lipitor
Urinary bladder distention--Seen on CT scan of the abdomen/pelvis-- Bladder scan with postvoid residual volume still pending
Constipation-- Seen on CT scan of the abdomen and pelvis as distention of the rectum with stool-- Continue MiraLAX and assess if patient is having normal bowel movements tomorrow.
GERD- Continue on pantoprazole
DVT proph
code status -- FUll code
Original Note:
Today's Communication/Plan
-
Anticipate on discharging patient tomorrow, pending abdominal pain.
Assessment / Plan
Assessment / Plan
Acute right lower quadrant abdominal pain
Right lower quadrant inguinal hernia:
- On physical examination there was noticeable guarding of the right lower quadrant of the abdomen
- Differential diagnosis included appendicitis, ureteral stone, adnexal mass or rupture of an adnexal cyst, constipation, cystitis.
- CT scan of the abdomen ruled out appendicitis, adnexal causes, showed urinary bladder distention, constipation, and fibroids.
- Surgery was consulted and on their physical examination manage to elicit a right inguinal hernia small soft reducible tender to palpation, discussed with the patient treatment options which include a robotic right inguinal hernia repair with mesh
and requested the patient to coordinate care outpatient. They are okay to discharge from surgical perspective.
- Continue on IV ketorolac for pain
SIADH:
- Patient has a euvolemic, hypotonic hyponatremia with urine sodium greater than 30 which is an indication of SIADH
- In her case the likely cause of her SIADH is pain from her right lower abdomen
- Fluid restriction and continue to trend the BMP
- SSRI was held as this could also contribute to SIADH
Essential hypertension:
- Patient's blood pressure was 161/73. No chest pain, blurry vision, palpitations, headaches.
- Continue hydralazine 5 mg IV as needed every 6 hours and continue to observe blood pressure trend. If blood pressure still increase tomorrow we will increase the dose of hydralazine or include the addition of calcium channel deanne.
Hyperlipidemia:
- Continue on atorvastatin 40 mg which is her home med
- Follow-up with outpatient PCP in 1 week to recheck lipid panel
Urinary bladder distention:
-Seen on CT scan of the abdomen/pelvis
- Bladder scan with postvoid residual volume still pending
Constipation:
- Seen on CT scan of the abdomen and pelvis as distention of the rectum with stool
- Continue MiraLAX and assess if patient is having normal bowel movements tomorrow.
GERD:
- Continue on pantoprazole 40 Mg
Anticipated Discharge: Within 24 hours
Subjective/Interval History
-
Date of Service: April 28, 2025
Patient is a 79-year-old female Hospital course day 2 with a past medical history of CAD, hypertension, compression fracture, GERD and breast cancer presents with severe constant lower abdominal pain that has been waking her up around 2 AM almost
every night for the past few weeks this pain is associated with constipation and urinary frequency. Significant labs on admission showed sodium level of 127. CT abdomen pelvis was also taken and ruled out appendicitis and adnexal pathology, showed
constipation, fibroids, bladder distention.
Patient was started on MiraLAX and had bowel movement today however pain was not relieved on bowel movement.
Dietitian was consulted
Pending bladder scan with postvoid residual volume.
Objective Data
-
Vital Signs:
Vital Signs
Temp Pulse Resp BP Pulse Ox
98.2 F 73 16 167/77 97
04/28/25 14:54 04/28/25 14:54 04/28/25 14:54 04/28/25 14:54 04/28/25 14:54
I&O
04/27/25 04/28/25 04/29/25
06:59 06:59 06:59
Intake Total 720 / 720 1440 / 1440
Balance 720 / 720 1440 / 1440
Review of Systems
-
History Source: Patient
Constitutional: Denies Fever, Weight Loss, Sleep Disturbance, Night Sweats or Chills
Respiratory: Denies Cough, Trouble Breathing or Wheezing
Cardiac: Denies Chest Pain, Diaphoresis, Palpitations, Syncope, PND or Orthopnea
Abdomen/GI: Reports Abdominal Pain (Right lower quadrant abdomen), Constipated and Bloated; Denies Nausea, Vomiting or Diarrhea
Genitourinary: Reports Frequency; Denies Dysuria, Flank Pain, Incontinence, Difficulty Voiding, Urgency or Bleeding
Neuro: Denies Dizzy, Weakness, Numbness or Tremors
Physical Exam
-
HEENT: Normocephalic
Respiratory: Clear to Auscultation
Cardiac: Regular Rhythm and S1/S2
GI: Soft, Nondistended, Normal Bowel Sounds and Tender (Guarding present in right lower quadrant of abdomen)
Musculoskeletal: No Cyanosis, No Edema and Clubbing
Skin: Warm and Dry
Neuro: Awake, Alert, Oriented and AO x 3
Psych: Calm
Data Reviewed
-
CT Scan: Report Reviewed by me and Discussed with Physician
Labs: Labs Reviewed by me and Discussed with Physician
[2025-04-28 23:25] VITALS: BP 165/86
[2025-04-29] MEDS: TORADOL 15 MG IV (05:38)
[2025-04-29 06:00] VITALS: BMI 23.4
[2025-04-29 06:57] LABS: Hematocrit 35.5 % (37.0-47.0); Hemoglobin 12.7 g/dL (12.0-16.0); Mean Corp Hgb Conc. 35.8 g/dL (33.0-37.0); Mean Corpuscular Volume 88.5 fL (81.0-99.0); Nucleated Red Blood Cells % 0 %; Platelet Count 246 10^3/uL (130-400); Red Cell Dist. Width 12.2 % (11.5-14.5)
[2025-04-29 07:00] VITALS: BP 171/83
[2025-04-29 07:16] LABS: ALT (SGPT) 18 U/L (0-35); AST (SGOT) 22 U/L (14-36); Albumin 4.0 g/dl (3.5-5.0); Alkaline Phosphatase 39 U/L (38-126); Blood Urea Nitrogen 5 mg/dl (7-17); Calcium 8.2 mg/dl (8.4-10.2); Carbon Dioxide 23 mmol/L (22-30); Chloride 98 mmol/L (98-107); Estimated Creatinine Clearance 61 ml/min; Glucose 100 mg/dl (70-99); Magnesium 2.1 mg/dl (1.6-2.3); Potassium 4.3 mmol/L (3.5-5.1); Sodium 126 mmol/L (135-145); Total Protein 6.0 g/dl (6.3-8.2); eGFR > 60.00
[2025-04-29] MEDS: TYLENOL 650 MG PO (07:53)
[2025-04-29] MEDS: ASPIR LOW (ENTERIC COATED) 81 MG PO (07:53)
[2025-04-29 14:57] VITALS: BP 154/74
--- NOTE | 2025-04-29 15:21 | W.CON.NEPH ---
Consultation
-
Date/Time Consultation Requested: 04/29/2025 1 PM
Date/Time Consultation Performed: 04/29/2025 3 PM
Requesting Provider: Dr. Boyer
Performing Provider: Dr. Nuñez
Reason for Consultation: Hyponatremia
Medical History
-
Chief Complaint: Abdominal pain
History of Present Illness:
This is a 79-year-old female who has hypertension on no antihypertensive drugs, hyperlipidemia controlled with statin therapy, mild depression for which she had taken a 5-day course of Lexapro but then discontinued. She says that she does not
actually feel depressed, though at the time she had told her primary she was when she was questioned. She says that for several weeks if not longer she has had abdominal discomfort. This had become more pronounced recently. She also has had some
constipation but no nausea or vomiting. This is ultimately what brought her to the emergency room. She was noted to be hyponatremic with a sodium level of 126. She says that she gets blood work perhaps once or twice a year but has never been told
of hyponatremia previously. She was found to have a right reducible inguinal hernia.
She does not drink more than 50 ounces per day.
Past Medical History
Coronary Artery Disease s/p Stent
Essential Hypertension
Hyperlipidemia
Lumbar Compression Fracture
Depression
GERD
Breast Cancer
Cholecystectomy
Right Breast Lumpectomy
Tiana Fundoplication
Social History
Tobacco: Non-Smoker
Alcohol: Daily
Family History
Family History: Not Pertinent
Allergies / Home Medications
Allergy/AdvReac Type Severity Reaction Status Date / Time
pecan nut Allergy RAPID Verified 01/25/25 08:06
HEART RATE
procaine Allergy Unknown Verified 01/25/25 08:06
epinephrine AdvReac Rapid Verified 01/25/25 08:06
Heart
rate,
sweats
�Medication �Instructions �Recorded �Confirmed �Type
atorvastatin 40 mg tablet 40 mg PO QPM cholesterol 01/06/16 04/27/25 History
cyanocobalamin (vitamin B-12) 500 500 mcg PO DAILY Supplement 01/06/16 04/27/25 History
mcg tablet (Vitamin B-12)
aspirin 81 mg tablet 81 mg PO DAILY Blood Clot 04/27/25 04/27/25 History
Prevention/Tx
calcium ER 600 mg (as carb,cit)-D3 1 tab PO DAILY Supplement 04/27/25 04/27/25 History
12.5 mcg (500 unit) tablet,
ext.rel (Citracal-D3 Slow Release)
cholecalciferol (vitamin D3) 25 25 mcg PO DAILY Supplement 04/27/25 04/27/25 History
mcg (1,000 unit) tablet
escitalopram oxalate 5 mg tablet 5 mg PO DAILY depression/anxiety 04/27/25 04/27/25 History
famotidine 20 mg tablet 20 mg PO QPM Gastrointestinal Issue 04/27/25 04/27/25 History
omeprazole 20 mg capsule,delayed 20 mg PO QPM Gastrointestinal Issue 04/27/25 04/27/25 History
release
solifenacin 10 mg tablet 10 mg PO QPM Urinary Issue 04/27/25 04/27/25 History
vit C 250 mg-vit E 90 mg-zinc 40 1 tab PO BID Supplement 04/27/25 04/27/25 History
mg-copper 1 [id number]
capsule (PreserVision AREDS-2)
Review of Systems
-
Abdominal pain. No chest pain or shortness of breath. No change in urination
All other systems: Negative unless noted
Physical Exam
Vital Signs
Vital Signs
Temp Pulse Resp BP Pulse Ox
98.5 F 76 18 154/74 98
04/29/25 14:57 04/29/25 14:57 04/29/25 14:57 04/29/25 14:57 04/29/25 14:57
Lab Results
WBC 6.3 10^3/uL (4.8-10.8) 04/29/25 06:38
RBC 4.01 10^6/uL (4.20-5.40) L 04/29/25 06:38
Hgb 12.7 g/dL (12.0-16.0) 04/29/25 06:38
Hct 35.5 % (37.0-47.0) L 04/29/25 06:38
Plt Count 246 10^3/uL (130-400) 04/29/25 06:38
Sodium 126 mmol/L (135-145) L 04/29/25 06:38
Potassium 4.3 mmol/L (3.5-5.1) 04/29/25 06:38
Chloride 98 mmol/L (98-107) 04/29/25 06:38
Carbon Dioxide 23 mmol/L (22-30) 04/29/25 06:38
BUN 5 mg/dl (7-17) L 04/29/25 06:38
Creatinine 0.4 mg/dL (0.6-1.0) L 04/29/25 06:38
eGFR > 60.00 04/29/25 06:38
Glucose 100 mg/dl (70-99) H 04/29/25 06:38
Calcium 8.2 mg/dl (8.4-10.2) L 04/29/25 06:38
Albumin 4.0 g/dl (3.5-5.0) 04/29/25 06:38
Laboratory Tests
01/25/25 04/27/25
10:19 14:08
Sodium 130 L
Urine Osmolality 216 L
Urine Sodium 49
CT abdomen pelvis with IV and oral contrast 04/27/2025
IMPRESSION: The appendix is not confidently identified.. There are no CT findings to suggest appendicitis.
No evidence for bowel obstruction or free intraperitoneal air.
Moderate distention of the rectum with stool. No findings to suggest stercoral colitis.
Retroverted uterus with calcifications suggesting fibroids.
Moderate to severe vascular calcification with no aortic aneurysm.
Colonic diverticula with no CT evidence of diverticulitis.
Small central hiatal hernia.
Compression deformities of T12, L1, and L2, stable from CT of February 06, 2025.
Physical Exam
Patient is awake alert oriented and in no distress. Mood and affect were pleasant, insight and judgment were good. Pupils are equal round and reactive to light, extraocular movements are intact, sclera were anicteric. Hearing was normal, ears and
nose are intact. Oropharynx was clear. Neck was supple with trachea midline and no thyromegaly. Heart was regular rate and rhythm without rubs. Lower extremities without edema. Lungs were clear to auscultation bilaterally and with normal
excursion. Abdomen was soft, tender to palpation generally, with normal active bowel sounds, and no hepatosplenomegaly. Skin was without rash and with normal turgor.
Data Reviewed
-
CT Scan: Report Reviewed by me
Labs: Labs Reviewed by me
Old Records: Reviewed
Assessment/Plan
-
Assessment
Hyponatremia
Right reducible inguinal hernia
Hyperlipidemia
Hypertension
Abdominal pain
Plan
She appears to have excess ADH state likely from pain from her inguinal hernia
I doubt that this is related to her Lexapro usage which was only short-lived
She also has had a prior hyponatremia episode in December which would not be explained by SSRI
She would likely benefit from Samsca at this time
Follow BMP
Continue fluid restriction 48 ounces
She may benefit from low-dose Lasix in the future
Outpatient hernia repair planning
--- NOTE | 2025-04-29 15:55 | W.PN.HOSP.TC ---
Addendum entered and electronically signed by Judy Romero MD 04/29/25 20:47:
I saw and evaluated the patient independently. I reviewed the resident�s note and agree with findings and plan as documented by Dr. Boyer.
GENERAL: well developed, well nourished, female in some distress
HEENT: NC/AT
HEART: regular rate and rhythm, +S1, +S2
LUNGS : clear to auscultation bilaterally
ABDOM: soft, tender RLQ with some guarding, nondistended, + bowel sounds--appears to be a hernia--reducible
EXT: no cyanosis, clubbing, or edema
NEUROLOGIC: grossly intact
Acute right lower quadrant abdominal pain--suspected hernia--no appendicitis on CT scan--apprec surgery--agreed with exam--for surgical repair in future, pt would like to proceed with inpt correction, will defer to surgery--pain control
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
Essential hypertension--cont IV hydralazine--consider adding or increasing meds
HLD--cont lipitor
Urinary bladder distention--Seen on CT scan of the abdomen/pelvis-- Bladder scan with postvoid residual volume still pending
Constipation-- Seen on CT scan of the abdomen and pelvis as distention of the rectum with stool-- Continue MiraLAX and assess if patient is having normal bowel movements tomorrow.
GERD- Continue on pantoprazole
DVT proph
code status -- FUll code
Original Note:
Today's Communication/Plan
-
- Trend BMP
- Check to see if patient had bowel movement
Assessment / Plan
Assessment / Plan
Acute right lower quadrant abdominal pain
Right lower quadrant inguinal hernia:
- On physical examination there was noticeable guarding of the right lower quadrant of the abdomen along with reducible mass in the right lower quadrant which expands in size on valsava maneuver.
- Differential diagnosis included appendicitis, ureteral stone, adnexal mass or rupture of an adnexal cyst, constipation, cystitis.
- CT scan of the abdomen ruled out appendicitis, adnexal causes, showed urinary bladder distention, constipation, and fibroids.
- Surgery was consulted and on their physical examination manage to elicit a right inguinal hernia small soft reducible tender to palpation, discussed with the patient treatment options which include a robotic right inguinal hernia repair with mesh
and requested the patient to coordinate care outpatient. They are okay to discharge from surgical perspective.
- Ketorolac dc'd. Started patient on ultram 50 mg as needed.
SIADH:
- todays sodium level is 126.
- Patient has a euvolemic, hypotonic hyponatremia with urine sodium greater than 30 which is an indication of SIADH
- In her case the likely cause of her SIADH is pain from her right lower abdomen
- Fluid restriction and continue to trend the BMP
- SSRI was held as this could also contribute to SIADH
- Consulted nephrology. They also think that SIADH probably due to pain. Administered one dose of samsca which blocks water reabsorption in the body causing increased sodium in body.
- Ordered a random cortisol level, based on the resulting cortisol level (anything above 18 is normal), we will then check ACTH
- Trend BMP
Essential hypertension:
- Patient's blood pressure was 150/80. No chest pain, blurry vision, palpitations, headaches.
- Continue hydralazine 5 mg IV as needed every 6 hours and continue to observe blood pressure trend. If blood pressure still increase tomorrow we will increase the dose of hydralazine or include the addition of calcium channel deanne.
Hyperlipidemia:
- Continue on atorvastatin 40 mg which is her home med
- Follow-up with outpatient PCP in 1 week to recheck lipid panel
Urinary bladder distention:
-Seen on CT scan of the abdomen/pelvis
- Bladder scan with postvoid residual volume still pending
Constipation:
- Seen on CT scan of the abdomen and pelvis as distention of the rectum with stool
- Patient started on miralax yesterday, did not have a bowel movement today, so added senna BID which is a laxative stimulant.
GERD:
- Continue on pantoprazole 40 Mg
Anticipated Discharge: 24 - 48 hours
Subjective/Interval History
-
Date of Service: April 29, 2025
Patient is a 79-year-old female Hospital course day 2 with a past medical history of CAD, hypertension, compression fracture, GERD and breast cancer presents with severe constant lower abdominal pain that has been waking her up around 2 AM almost
every night for the past few weeks this pain is associated with constipation and urinary frequency. Significant labs on admission showed sodium level of 127. CT abdomen pelvis was also taken and ruled out appendicitis and adnexal pathology, showed
constipation, fibroids, bladder distention.
Patient was started on MiraLAX, yesterday had a bowel movement, but has not had a bowel movement since yesterday.
Pending bladder scan with postvoid residual volume.
Objective Data
-
Labs:
Laboratory Results
04/29/25
06:38
WBC 6.3
Hgb 12.7
Hct 35.5 L
Plt Count 246
Sodium 126 L
Potassium 4.3
Chloride 98
Carbon Dioxide 23
BUN 5 L
Creatinine 0.4 L
Glucose 100 H
Calcium 8.2 L
Total Bilirubin 0.9
AST 22
ALT 18
Alkaline Phosphatase 39
Vital Signs:
Vital Signs
Temp Pulse Resp BP Pulse Ox
98.5 F 76 18 154/74 98
04/29/25 14:57 04/29/25 14:57 04/29/25 14:57 04/29/25 14:57 04/29/25 14:57
I&O
04/28/25 04/29/25 04/30/25
06:59 06:59 06:59
Intake Total 720 / 720 1919
Balance 720 / 720 1919
Review of Systems
-
History Source: Patient
Constitutional: Denies Fever, Weight Loss, Sleep Disturbance, Night Sweats or Chills
Respiratory: Denies Cough, Trouble Breathing or Wheezing
Cardiac: Denies Chest Pain, Diaphoresis, Palpitations, Syncope, PND or Orthopnea
Abdomen/GI: Reports Abdominal Pain (right lower quadrant pain), Constipated and Bloated; Denies Nausea, Vomiting or Diarrhea
Genitourinary: Reports Frequency; Denies Dysuria, Flank Pain, Incontinence, Difficulty Voiding, Urgency or Bleeding
Neuro: Denies Dizzy, Weakness, Numbness or Tremors
Physical Exam
-
HEENT: Normocephalic
Respiratory: Clear to Auscultation
Cardiac: Regular Rhythm and S1/S2
GI: Soft, Nondistended, Normal Bowel Sounds, Tender (Guarding present in right lower quadrant of abdomen) and Other (there is a soft reducible mass in right lower quadrant which increases in size on valsalva maneuver on standing )
Musculoskeletal: No Cyanosis, No Edema and Clubbing
Skin: Warm and Dry
Neuro: Awake, Alert, Oriented and AO x 3
Psych: Calm
Data Reviewed
-
CT Scan: Report Reviewed by me and Discussed with Physician
Labs: Labs Reviewed by me and Discussed with Physician
[2025-04-29] MEDS: SAMSCA 15 MG PO (16:01)
--- NOTE | 2025-04-29 16:25 | CM ---
Patient seen at bedside on . Patient remains as OBS/LOPEZ at this time. Patient for discussed surgical recommendation for outpatient surgery. CM will continue to follow for discharge planning needs.
PLan; home with VN vs home with no needs.
[2025-04-29] MEDS: LIPITOR 40 MG PO (17:35)
[2025-04-29] MEDS: PROTONIX 40 MG PO (17:35)
[2025-04-29 18:32] LABS: Cortisol, Random 9.4 ug/dl
[2025-04-29] MEDS: SENOKOT 8.6 MG PO (19:29)
[2025-04-29 23:00] VITALS: BP 140/68
[2025-04-30] MEDS: ULTRAM 50 MG PO (03:30)
[2025-04-30 06:00] VITALS: BMI 22.8
[2025-04-30 07:30] VITALS: BP 159/83
[2025-04-30 07:33] LABS: ALT (SGPT) 20 U/L (0-35); AST (SGOT) 20 U/L (14-36); Albumin 4.3 g/dl (3.5-5.0); Alkaline Phosphatase 39 U/L (38-126); Blood Urea Nitrogen 5 mg/dl (7-17); Calcium 9.2 mg/dl (8.4-10.2); Carbon Dioxide 23 mmol/L (22-30); Chloride 104 mmol/L (98-107); Estimated Creatinine Clearance 61 ml/min; Glucose 102 mg/dl (70-99); Magnesium 2.2 mg/dl (1.6-2.3); Potassium 4.3 mmol/L (3.5-5.1); Sodium 133 mmol/L (135-145); Total Protein 6.5 g/dl (6.3-8.2); eGFR > 60.00
[2025-04-30 07:34] LABS: Hematocrit 36.7 % (37.0-47.0); Hemoglobin 13.0 g/dL (12.0-16.0); Mean Corp Hgb Conc. 35.4 g/dL (33.0-37.0); Mean Corpuscular Volume 90.2 fL (81.0-99.0); Nucleated Red Blood Cells % 0 %; Platelet Count 277 10^3/uL (130-400); Red Cell Dist. Width 12.6 % (11.5-14.5)
[2025-04-30] MEDS: ASPIR LOW (ENTERIC COATED) 81 MG PO (08:14)
[2025-04-30] MEDS: SENOKOT 8.6 MG PO (08:14)
--- NOTE | 2025-04-30 11:56 | W.PN.NEPH.PH ---
Today's Communication / Plan
-
For discharge from renal
Follow-up in office in 2 to 3-week
Assessment/Plan
-
Assessment
Hyponatremia
Right reducible inguinal hernia
Hyperlipidemia
Hypertension
Abdominal pain
Plan
She appears to have excess ADH state likely from pain from her inguinal hernia
Continue fluid restriction 48 ounces
Okay for discharge from renal standpoint
Avoid NSAIDs as discussed with the patient
Increase protein in her diet
Discussed with primary team
Will have her follow-up in our office in a couple weeks with blood work to be done in the next 5 days or so
-
-
Date of Service: April 30, 2025
CC / HPI / ROS
-
No chest pain or shortness of breath continues to have mild to moderate abdominal pain with poor appetite
No overnight events
10 point review systems obtained all else negative
Labs
-
Labs:
WBC 6.2 10^3/uL (4.8-10.8) 04/30/25 06:59
RBC 4.07 10^6/uL (4.20-5.40) L 04/30/25 06:59
Hgb 13.0 g/dL (12.0-16.0) 04/30/25 06:59
Hct 36.7 % (37.0-47.0) L 04/30/25 06:59
Plt Count 277 10^3/uL (130-400) 04/30/25 06:59
Sodium 133 mmol/L (135-145) L 04/30/25 06:59
Potassium 4.3 mmol/L (3.5-5.1) 04/30/25 06:59
Chloride 104 mmol/L (98-107) 04/30/25 06:59
Carbon Dioxide 23 mmol/L (22-30) 04/30/25 06:59
BUN 5 mg/dl (7-17) L 04/30/25 06:59
Creatinine 0.4 mg/dL (0.6-1.0) L 04/30/25 06:59
eGFR > 60.00 04/30/25 06:59
Glucose 102 mg/dl (70-99) H 04/30/25 06:59
Calcium 9.2 mg/dl (8.4-10.2) 04/30/25 06:59
Albumin 4.3 g/dl (3.5-5.0) 04/30/25 06:59
Physical Exam
-
Vital Signs:
Vital Signs
Temp Pulse Resp BP Pulse Ox
98.0 F 79 16 159/83 96
04/30/25 07:30 04/30/25 07:30 04/30/25 07:30 04/30/25 07:30 04/30/25 07:30
Respiratory:: Bilateral: CTA
Lung Excursion:: Normal
Abdomen:: Soft
Bowel Sounds:: Normal
Extremity Edema:: None: Bilateral:
--- NOTE | 2025-04-30 15:19 | W.PN.HOSP.TC ---
Addendum entered and electronically signed by Judy Romero MD 04/30/25 15:50:
I saw and evaluated the patient independently. I reviewed the resident�s note and agree with findings and plan as documented by Dr. Dejesus.
GENERAL: well developed, well nourished, female in some distress
HEENT: NC/AT
HEART: regular rate and rhythm, +S1, +S2
LUNGS : clear to auscultation bilaterally
ABDOM: soft, tender RLQ with some guarding, nondistended, + bowel sounds--appears to be a hernia--reducible
EXT: no cyanosis, clubbing, or edema
NEUROLOGIC: grossly intact
Acute right lower quadrant abdominal pain--suspected symptomatic hernia--no appendicitis on CT scan--apprec surgery---for surgical repair in future, pt would like to proceed with inpt correction, spoke with surgery who indicates outpt surgery
electively--pain control
hyponatremia--likely due to SIADH--likely due to pain with superimposed SSRI treatment--fluid restriction--restart SSRI at discharge--apprec renal--s/p samsca--follow BMP--fluid restriction
Essential hypertension--cont IV hydralazine--consider adding or increasing meds
HLD--cont lipitor
Urinary bladder distention--Seen on CT scan of the abdomen/pelvis
Constipation-- Seen on CT scan of the abdomen and pelvis as distention of the rectum with stool-- Continue MiraLAX daily with goal for BM daily or every other day
GERD- Continue on pantoprazole
DVT proph
code status -- Full code
OK for d/c
Original Note:
Today's Communication/Plan
-
Discharge today with instructions of follow-up with general surgery
Repeat BMP in 1 week
Tylenol 1000 mg 3 times daily
Okay to continue aspirin with hx CAD s/p stent per nephrology
Assessment / Plan
Assessment / Plan
Acute right lower quadrant abdominal pain
Right lower quadrant inguinal hernia:
-- Right inguinal hernia noted on physical exam, reducible, CT inconclusive for other acute etiology
-- General Surgery consulted and recommend follow-up outpatient
-- Discharge on scheduled Tylenol 1000 mg every 4-6 hours.
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
- Patient has a euvolemic, hypotonic hyponatremia with urine sodium greater than 30 which is an indication of SIADH - random cortisol at 5pm wnl and hypertensive making adrenal insufficiency unlikely
- s/p 1 dose Samsca
- todays sodium level is 126 -> 133
- Fluid restriction 48 oz per nephro
- Okay to discharge from nephrology standpoint with instructions to avoid NSAIDs and fluid restriction high protein diet
-- Repeat BMP outpatient
Essential hypertension:
-- Mildly elevated during stay, has however has not required as needed hydralazine
-- Follow-up with PCP outpatient
Hyperlipidemia:
-- Continue statin
Urinary bladder distention:
--Resolved
Constipation:
-- Last bowel movement on 04/28
-- Recommend MiraLAX on discharge to avoid constipation
GERD:
- Continue home PPI famotidine and omeprazole
DVT lovenox
Full code
Anticipated Discharge: Today
Subjective/Interval History
-
Date of Service: April 30, 2025
Tearful and upset that she cannot get the surgery here in the hospital. Still in a significant amount of pain. Worried about going home without anyone there to help take care of her.
Objective Data
-
Labs:
Laboratory Results
04/30/25
06:59
WBC 6.2
Hgb 13.0
Hct 36.7 L
Plt Count 277
Sodium 133 L
Potassium 4.3
Chloride 104
Carbon Dioxide 23
BUN 5 L
Creatinine 0.4 L
Glucose 102 H
Calcium 9.2
Total Bilirubin 0.8
AST 20
ALT 20
Alkaline Phosphatase 39
Vital Signs:
Vital Signs
Temp Pulse Resp BP Pulse Ox
98.0 F 79 16 159/83 96
04/30/25 07:30 04/30/25 07:30 04/30/25 07:30 04/30/25 07:30 04/30/25 07:30
I&O
04/29/25 04/30/25 05/01/25
06:59 06:59 06:59
Intake Total 1919 1020 / 1020
Balance 1919 1020 / 1020
Review of Systems
-
History Source: Patient
EENT: Reports No Symptoms Reported
Respiratory: Reports No Symptoms
Cardiac: Reports No Symptoms
Abdomen/GI: Reports Abdominal Pain (Right lower quadrant near inguinal hernia)
Genitourinary: Reports No Symptoms
Neuro: Reports No Symptoms
Physical Exam
-
General: No Apparent Distress and Comfortable
HEENT: Normocephalic
Respiratory: Clear to Auscultation
Cardiac: Regular Rhythm and S1/S2
GI: Soft, Nondistended, Normal Bowel Sounds and Tender (Tenderness in right lower over inguinal hernia location with palpation)
Musculoskeletal: No Cyanosis and No Edema
Skin: Warm and Dry
Neuro: AO x 3
Psych: Calm
[2025-04-30 15:30] VITALS: BP 136/72
--- NOTE | 2025-04-30 18:40 | W.DCSUMMARY ---
Addendum entered and electronically signed by Judy Romero MD 04/30/25 19:01:
Read, reviewed, and agree. See same day progress note for additional details. Time spent coordinating care, DC planning, review of DC plan of care with resident, transition of care, review of records in EMR, med rec, consults, notes, d/w
consultants, nursing, family, and CM = 36 minutes
Original Note:
Discharge Summary
Discharge Data
Date of Admission: 04/27/25
Date of Discharge: 04/30/25
-
Pending Results: No
Hospital Course
Primary diagnosis:
Right inguinal hernia
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
Secondary diagnoses:
Essential hypertension
Hyperlipidemia
GERD
Constipation
Hospital course:
79-year-old female with past medical history of CAD status post stent, hypertension, compression fracture, GERD, breast cancer status post lumpectomy presented to [facility] with abdominal pain. She stated that it was waking her up from
sleep for the past few weeks. CT abdomen pelvis was unremarkable for acute etiology. General surgery found right inguinal hernia on physical exam and suspected to be etiology of pain. Patient also noted to be hyponatremic with a sodium level 126.
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 Sodium improved to 133 status post 1 dose of tolvaptan. Random cortisol within normal limits and hypertensive making adrenal insufficiency less likel and TSH 1.37. Due
to clinically stable presentation, and already scheduled consultation with Dr. Win in early May for evaluation, general surgery recommended outpatient evaluation and elective surgery for inguinal hernia.
Today, patient is clinically stable for discharge. Sodium is 133. Recommend repeat BMP in 1 week with sodium level sent to PCP. Fluid restriction of 48oz daily until after surgery. Recommend follow-up with nephrology outpatient within a few weeks.
Right inguinal hernia pain, recommend scheduled Tylenol 1000 mg 3 times daily and follow-up with general surgery for elective repair. Per nephrology, aspirin is okay given prior history of CAD status post stent, however avoid other NSAIDs. As
needed miralax for constipation was also recommended.
Discharge Plan
-
Patient Disposition: Home (Routine Discharge)
Discharge Diagnosis/Procedures: Hyponatremia secondary to syndrome of inappropriate antidiuretic hormone, symptomatic reducible right inguinal hernia
Condition: Fair
Diet: Restrict fluids to 48 oz
Additional Diets: High protein
Activity: No strenuous activity
Additional Activity: No heavy lifting or strenuous activities. OK to use supportive devices or underwear to minimize symptoms.
Driving Restrictions: As prior to admission
Bathing Restrictions: None
Blood Work: BMP in one week
Referrals:
Lucien Win MD [Active, Surgical] - in one week
Barbi Dave MD [Family Provider, Family Practice] - in two to three weeks
Additional Discharge Medication Instructions: repeat BMP in about a week (05/05/2025). F/u with general surgery. Take Tylenol 1,000mg three times a day (every 6 hours).
Prescriptions:
Continued
atorvastatin 40 MG tablet
40 mg PO QPM
cyanocobalamin (vitamin B-12) [Vitamin B-12] 500 MCG tablet
500 mcg PO DAILY
famotidine 20 mg Tablet
20 mg PO QPM
omeprazole 20 mg capsule,delayed release(DR/EC)
20 mg PO QPM
Patient Comments:
04/27/25: pt has been taking this in the evening for the last week
aspirin 81 mg Tablet
81 mg PO DAILY
solifenacin 10 mg tablet
10 mg PO QPM
cholecalciferol (vitamin D3) 25 mcg (1,000 unit) Tablet
25 mcg PO DAILY
calcium carb, citrate-vit D3 [Citracal-D3 Slow Release] 600 mg-12.5 mcg (500 unit) Tablet Extended Release
1 tab PO DAILY
PreserVision AREDS-2 250-90-40-1 mg Capsule
1 tab PO BID
Discontinued
escitalopram oxalate 5 mg tablet
5 mg PO DAILY
Patient Comments:
04/27/25: took a whole tab for the first time today
Rx Instructions:
one half tab once daily for 4 days then increase to one tablet daily
Discharge Orders:
Discharge Patient (As Directed); Ordered 04/30/25
Ordered By: Nicole Dejesus
Discharge Date and Time
Discharge Date/Time: 04/30/25 16:47
Print Language: [id number]
== END 2025-04-30 16:47 | disposition home or self-care (01) ==
LOC: 3 WEST ACU 14:07
PROVIDERS: Emergency Medicine; Physician Assistant Medical; ADMITTING PHYSICIAN Hospitalist; ATTENDING PHYSICIAN Internal Medicine; CONSULT PHYSICIAN Specialist; CONSULT PHYSICIAN Surgery; EMERGENCY PHYSICIAN Emergency Medicine; FAMILY PHYSICIAN Family Medicine
DX: K40.90 Unilateral inguinal hernia, without obstruction or gangrene, not specified as recurrent (principal); E22.2 Syndrome of inappropriate secretion of antidiuretic hormone; K59.00 Constipation, unspecified; I10 Essential (primary) hypertension; I25.10 Atherosclerotic heart disease of native coronary artery without angina pectoris; K21.9 Gastro-esophageal reflux disease without esophagitis; M48.56XA Collapsed vertebra, not elsewhere classified, lumbar region, initial encounter for fracture; E78.00 Pure hypercholesterolemia, unspecified; F41.9 Anxiety disorder, unspecified; G89.29 Other chronic pain; F32.A Depression, unspecified; R33.9 Retention of urine, unspecified; Z79.82 Long term (current) use of aspirin; Z79.899 Other long term (current) drug therapy; Z85.3 Personal history of malignant neoplasm of breast; Z90.49 Acquired absence of other specified parts of digestive tract; Z95.5 Presence of coronary angioplasty implant and graft
CPT/HCPCS: 74177; 80048; 80053; 81003; 82533; 83690; 83735; 83930; 83935; 84295; 84300; 84443; 85025; 85027; 99285; G0378; Q9967

== ENCOUNTER → 2025-05-05 08:52 | Outpatient (REF) | payer OTHER, SELFPAY ==
[2025-05-05 10:24] LABS: Blood Urea Nitrogen 7 mg/dl (7-17); Calcium 9.7 mg/dl (8.4-10.2); Carbon Dioxide 25 mmol/L (22-30); Chloride 98 mmol/L (98-107); Glucose 122 mg/dl (70-99); Potassium 4.2 mmol/L (3.5-5.1); Sodium 131 mmol/L (135-145); eGFR > 60.00
== END ==
LOC: REG 08:52
PROVIDERS: FAMILY PHYSICIAN Family Medicine
DX: I25.10 Atherosclerotic heart disease of native coronary artery without angina pectoris (principal); I10 Essential (primary) hypertension; Z95.5 Presence of coronary angioplasty implant and graft
CPT/HCPCS: 36415; 80048

== ENCOUNTER 2025-05-19 08:46 | Emergency (ER) | payer OTHER, SELFPAY ==
[2025-05-19 08:50] VITALS: BP 141/65
--- NOTE | 2025-05-19 09:01 | ED.GENMED ---
History of Present Illness
General
Chief Complaint: Abdominal Symptoms
Source: patient
Exam Limitations: none
Time Seen by Provider: 05/19/25 08:55
Nursing documentation reviewed up to this point in time: agreed with
History of Present Illness
History of Present Illness:
The patient is a 79-year-old female with a known hernia, who is scheduled for surgical repair on June [address] Florence. The patient reports waking up this morning with severe abdominal pain, described as similar to previous hernia-related
pain. The current pain level is rated as an 8 or 9 on a scale of zero to ten. The patient has not taken any medication for the pain, as she typically avoids pain medications.
Past History
Past History
ED Past Medical History: Cancer (Breast), HTN, Hypercholesterolemia and Other (L1 compression fracture)
ED Past Surgical History: Cardiac (stent 2013), Cholecystectomy and Gynecological
Patient has exhibited threatening behavior?: No
PSI?: No
Social History
Tobacco: Non-smoker
Alcohol: None
Personal:
Living: with family
Employment: Retired
Family History
Family History: Other (Noncontributory)
Review of Systems
Review of Systems
Allergies reviewed?: Yes
All Other Systems: ROS reviewed and negative except as documented in HPI and ROS
Constitutional: Denies fever
ABD/GI: Reports abdominal pain; Denies nausea, vomiting, diarrhea or constipated
: Reports no symptoms
Musculoskeletal: Reports no symptoms
Skin: Reports no symptoms
Neurological: Reports no symptoms
Phy Exam
Physical Exam
Physical Exam:
General: Alert, no acute distress, but in significant discomfort due to pain.
Skin: Warm, dry.
Eye Ears, nose, mouth and throat: Oral mucosa moist.
Cardiovascular: Normal peripheral perfusion, No edema.
Respiratory: Respirations are non-labored.
Gastrointestinal : Tender to palpate over right mid abdomen (pt states same as typical hernia pain), normal BS, non distended, no palpatble masses.
Back: Normal range of motion, Normal alignment.
Musculoskeletal: Normal ROM, normal strength.
Neurological: Alert and oriented to person, place, time, and situation, No focal neurological deficit observed.
Psychiatric: Cooperative, tearful, anxious mood & affect.
Course
Orders/Labs/Results
Orders:
Orders
05/19/25 08:59
HYDROmorphone [Dilaudid] 0.5 mg IV NOW STA
05/19/25 09:07
Complete Blood Count/With Diff Urgent
Comprehensive Metabolic Panel Urgent
Lipase Urgent
05/19/25 09:16
CT Abd/pel W Iv And Oral Contr Urgent
Comment:
Reason For Exam: pain at hiatal hernia site
Iohexol [Omnipaque] See Protocol PO NOW STA
05/19/25 09:22
Ondansetron Injectable [Zofran] 4 mg .ROUTE .ST-MED ONE
05/19/25 09:24
Lactate Level [Lactic Acid] Urgent
05/19/25 11:45
Ondansetron Injectable [Zofran] 4 mg IV NOW STA
Abnormal Lab Results
05/19/25
09:07
MCH 32.0 H pg
(27.0-31.0)
Absolute Neuts (auto) 6.7 H 10^3/uL
(1.4-6.5)
Absolute Lymphs (auto) 0.7 L 10^3/uL
(1.2-3.4)
Neutrophils % 84.6 H %
(42.2-75.2)
Lymphocytes % 8.7 L %
(20.5-51.1)
Sodium 131 L mmol/L
(135-145)
Creatinine 0.4 L mg/dL
(0.6-1.0)
Glucose 157 H mg/dl
(70-99)
Alkaline Phosphatase 34 L U/L
(38-126)
05/19/25 09:07
05/19/25 09:07
Vital Signs
Initial and Last Documented VS:
Initial Vital Signs
Temp Pulse Resp BP Pulse Ox
97.7 F 97 24 141/65 100
05/19/25 08:50 05/19/25 08:50 05/19/25 08:50 05/19/25 08:50 05/19/25 08:50
Last Documented Vital Signs
Temp Pulse Resp BP Pulse Ox
97.7 F 74 18 128/85 98
05/19/25 08:50 05/19/25 11:55 05/19/25 11:55 05/19/25 11:55 05/19/25 11:55
MDM/Problems Addressed
Differential Diagnosis Includes:
hernia, strangulated hernia, ischemic bowel
MDM/Problems Addressed:
The patient is a 79-year-old female with a known hernia, who is scheduled for surgical repair on June 11. The patient reports waking up this morning with severe abdominal pain, described as similar to previous hernia-related pain. The current
pain level is rated as an 8 or 9 on a scale of zero to ten. The patient has not taken any medication for the pain, as she typically avoids pain medications.
No palpable masses, pt states 'it always disappears when I lay down,' 'no body believes me...they make me stand up to prove it,' 'I can't take this pain anymore' states she cant wait until 06/11 for the surgery
CBC normal
CMP with no clinically significant abnormality
Lipase normal
10:30 a.m.
After finishing 1 1/4 of the po contrast, pt vomited a small amount. Will hold off on rest of contrast
1:20 PM:
CT abdomen pelvis with p.o. and IV contrast radiology report read:
IMPRESSION:
1. Small hiatal hernia as seen previously. No associated acute inflammatory changes are identified at CT.
2. No acute intra-abdominal process identified.
3. Diverticulosis without diverticulitis.
4. Post cholecystectomy.
In to re evaluate pt.
Standing out of bed walking around, as she states pain is worse and 'it comes out' if she walks around, states 'I can't feel it now,' and no palpable masses in abdomen
Nothing to indicate acute abdomen, stable to f/u as scheduled with Gen Surgery on 06/11
Overheard pt speaking with her neighbor male friend who drove her here. Significant family stress happening which may be contributing to pt feeling so bad.
2:00 PM:
Pt states she now feels the lump, there is indeed a tender approx 5 x5 cm tender soft protrusion that easily reduces when she lays down.
Explained to her how to reduce the hernia
Explained incarcerated hernia and when she should return immediately
Abdominal binder provided.
*Pulse Oximetry
SaO2: 100
Oxygen Mode of Delivery: Room air
Patient hypoxic: not evaluated
*Critical Care Note
Total Time (30-74mins, 75-104mins- exclusive of procedures): Not Applicable
ED Attending Note
-
Portions of this chart may have been created with voice recognition software.� Occasional wrong word or��sound alike� substitutions may have occurred due to the inherent limitations of voice recognition software.
Discharge Plan
Departure
Patient Disposition: Home (Routine Discharge)
Date of Disposition: 05/19/25
Time of Disposition: 13:48
Patient with high blood pressure during this ER visit?: No
Condition: Good
Discharge Problem:
Abdominal pain
Instructions: Abdominal Pain
Prescriptions:
No Action
atorvastatin 40 MG tablet
40 mg PO QPM
cyanocobalamin (vitamin B-12) [Vitamin B-12] 500 MCG tablet
500 mcg PO DAILY
famotidine 20 mg Tablet
20 mg PO QPM
omeprazole 20 mg capsule,delayed release(DR/EC)
20 mg PO QPM
Patient Comments:
04/27/25: pt has been taking this in the evening for the last week
aspirin 81 mg Tablet
81 mg PO DAILY
solifenacin 10 mg tablet
10 mg PO QPM
cholecalciferol (vitamin D3) 25 mcg (1,000 unit) Tablet
25 mcg PO DAILY
calcium carb, citrate-vit D3 [Citracal-D3 Slow Release] 600 mg-12.5 mcg (500 unit) Tablet Extended Release
1 tab PO DAILY
PreserVision AREDS-2 250-90-40-1 mg Capsule
1 tab PO BID
Referrals:
Negro Florence MD [Active, Surgical] - Keep scheduled appt
Barbi Dave MD [Family Provider, Family Practice]
Activity Restrictions/Additional Instructions:
As we discussed, your workup here shows nothing worrisome, specifically, no indication for emergent surgery. Your CAT scan shows a small hiatal hernia which is the same as it was on your last 2 CAT scans.
Keep your appointment on 06/[address] Florence for your hernia
If when you stand up and move around you feel the lump, lay back down and allow the area to improve. As I showed you, you may gently push on the area to reduce it back while you are laying down.
Return here immediately for worsening pain and inability to reduce the hernia.
Interventions
Interventions:
*Risk Screen - Suicide Last Done: 05/19/25 09:10
*General Assessment Last Done: 05/19/25 13:12
*Neglect/Abuse Screening Last Done: 05/19/25 09:10
*ED- Fall Risk Assessment Last Done: 05/19/25 13:12
*ED COVID-19 Vaccine History Last Done: 05/19/25 13:12
*Nursing Disposition Last Done: 05/19/25 14:11
BP-Bpiaaw-Myzukeudbw Assessment Last Done: 05/19/25 09:09
Discharge Date and Time
Discharge Date/Time: 05/19/25 14:12
Print Language: MAURITIAN
[2025-05-19] MEDS: DILAUDID 0.5 MG IV (09:05)
[2025-05-19 09:18] LABS: Hematocrit 39.0 % (37.0-47.0); Hemoglobin 13.7 g/dL (12.0-16.0); Mean Corp Hgb Conc. 35.1 g/dL (33.0-37.0); Mean Corpuscular Volume 91.1 fL (81.0-99.0); Nucleated Red Blood Cells % 0 %; Platelet Count 325 10^3/uL (130-400); Red Cell Dist. Width 12.6 % (11.5-14.5)
[2025-05-19] MEDS: OMNIPAQUE 50 ML PO (09:25)
[2025-05-19 09:29] LABS: ALT (SGPT) 18 U/L (0-35); AST (SGOT) 21 U/L (14-36); Albumin 4.8 g/dl (3.5-5.0); Alkaline Phosphatase 34 U/L (38-126); Blood Urea Nitrogen 7 mg/dl (7-17); Calcium 9.9 mg/dl (8.4-10.2); Carbon Dioxide 23 mmol/L (22-30); Chloride 99 mmol/L (98-107); Glucose 157 mg/dl (70-99); Lipase 80 U/L (23-300); Potassium 4.1 mmol/L (3.5-5.1); Sodium 131 mmol/L (135-145); Total Protein 7.0 g/dl (6.3-8.2); eGFR > 60.00
[2025-05-19] MEDS: ZOFRAN 4 MG IV (11:50)
[2025-05-19 11:55] VITALS: BP 128/85
== END 2025-05-19 14:12 | disposition home or self-care (01) ==
LOC: EMR 08:46
PROVIDERS: Registered Nurse; EMERGENCY PHYSICIAN Emergency Medicine; FAMILY PHYSICIAN Family Medicine
DX: R10.9 Unspecified abdominal pain (principal); I10 Essential (primary) hypertension; E78.00 Pure hypercholesterolemia, unspecified; K44.9 Diaphragmatic hernia without obstruction or gangrene; Z63.8 Other specified problems related to primary support group; Z85.3 Personal history of malignant neoplasm of breast; Z90.49 Acquired absence of other specified parts of digestive tract
CPT/HCPCS: 99284; 96374; 96375; 74177; 80053; 83605; 83690; 85025; Q9967

== ENCOUNTER 2025-06-11 06:21 | Day surgery (SDC) | payer OTHER, SELFPAY ==
[2025-06-04 14:08] VITALS: BMI 22.3
[2025-06-11] VITALS (11 sets, daily range): BP systolic 125–169; BP diastolic 59–88; BMI 22.3
[2025-06-11] MEDS: TYLENOL 1000 MG PO (09:59)
[2025-06-11] MEDS: NORMOSOL-R/PLASMALYTE-A 1000 IV (10:06)
[2025-06-11] MEDS: ZOFRAN 4 MG IV (14:24)
[2025-06-11] MEDS: DILAUDID 0.25 MG IV ×2 (14:24→14:51)
== END 2025-06-11 16:50 | disposition home or self-care (01) ==
LOC: SDS 06:21
PROVIDERS: ATTENDING PHYSICIAN Surgery; FAMILY PHYSICIAN Family Medicine
DX: K40.90 Unilateral inguinal hernia, without obstruction or gangrene, not specified as recurrent (principal); K41.90 Unilateral femoral hernia, without obstruction or gangrene, not specified as recurrent
CPT/HCPCS: 49650; 36415; 93005; C1781

== ENCOUNTER 2025-06-12 14:00 | Emergency (ER) | payer OTHER, SELFPAY ==
[2025-06-12 14:09] VITALS: BP 147/75
--- NOTE | 2025-06-12 17:36 | W.PN.SURGUPD ---
Surgical Update
Surgical Update
Patient seen and examined in the emergency department area.
Reports burning postoperative pain in the right groin region which she feels as though is not adequately controlled with tramadol.
There is also some discomfort at the right sided robotic surgical site.
She is ambulating well, standing as well.
Pain worse when laying flat so she had difficulty sleeping last night.
No nausea, no vomiting
AFVSS NAD AAO x 3
ABD: Soft, nondistended, localizing tenderness only in the right lower quadrant/inguinal area and robotic surgical sites. No ecchymosis, no swelling, no seromas or hematomas
Assessment/plan: 79-year-old female POD #1 status post RAL right inguinal herniorrhaphy with mesh
inadequate postoperative pain control reported but no clinical signs of postoperative complication
Offered either admission for pain control versus discharge on alternative narcotics such as oxycodone
Since she states that she is ambulating fine and standing fine her preference is for discharge with oxycodone as a new prescription which I will send into her pharmacy electronically
We discussed utilizing ice
We discussed utilizing acetaminophen
I also recommended that she sleep in a recliner since laying flat is the most uncomfortable for her
== END 2025-06-12 18:15 | disposition home or self-care (01) ==
LOC: EMR 14:00
PROVIDERS: EMERGENCY PHYSICIAN Emergency Medicine; FAMILY PHYSICIAN Family Medicine
DX: G89.18 Other acute postprocedural pain (principal); R10.31 Right lower quadrant pain
CPT/HCPCS: 99283

== ENCOUNTER → 2025-07-28 13:01 | Outpatient (REF) | payer OTHER, SELFPAY | LOC: RAD 13:01 | PROVIDERS: ATTENDING PHYSICIAN Internal Medicine Critical Care Medicine; FAMILY PHYSICIAN Family Medicine | DX: R91.1 Solitary pulmonary nodule (principal) | CPT/HCPCS: 71250 ==

== ENCOUNTER → 2025-09-23 10:56 | Outpatient (REF) | payer OTHER, SELFPAY | LOC: RAD 10:56 | PROVIDERS: ATTENDING PHYSICIAN Specialist; FAMILY PHYSICIAN Family Medicine | DX: R63.4 Abnormal weight loss (principal) | CPT/HCPCS: 74177; Q9967 ==